=== PATIENT | male | born 1980 | race Two or more races ===

== ENCOUNTER 2024-09-10 11:57 | Outpatient (RCR) | payer MEDICAID, SELFPAY ==
--- NOTE | 2024-09-10 14:04 | PTNOTE_ITS ---
PT OP Initial Eval Patient Information Outpatient Physical Therapy Treatment Date: 09/10/24 Visit Reasons: Osteoarthritis of right ankle Medical Diagnosis: M19.071 Start of Care: 09/10/24 Date of Onset: 2009 Smoking Status Smoking Status: Never smoker Initial Assessment Subjective: Pt is 43 yr old cameroonian speaking male who c/o long Hx of R ankle pain since 2009 when he stepped off a ladder and the ankle rolled. Since then the pain is intermittent and it swells sometimes. The last time it swelled was 2 months ago. 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 He also points out there is a bone on the lateral side that is sticking out more. 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 Pt not likely going to benefit from skilled therapy to meet goals since pain is chronic and OA related and comes and goes. He has good function work duties. He was given printout of HEP and lace up ankle brace. Short Term and Penitentiary Goals Eval and D/C Treatment Plan Eval and D/C Certification Dates: 09/10/24 to 10/09/24 Procedure Charges OP PT Eval Mod Complex 30 minutes: Yes
== END 2024-09-20 23:59 | disposition home or self-care (01) ==
LOC: CPTX 11:57
PROVIDERS: PCP Physician Assistant; Referring Provider Physician Assistant; Visit Provider Physician Assistant
DX: M25.571 Pain in right ankle and joints of right foot (principal); M19.071 Primary osteoarthritis, right ankle and foot
CPT/HCPCS: 97162